=== PATIENT | male | born 1975 | race Two or more races ===

== ENCOUNTER 2017-06-25 11:12 | Day surgery (SDC) | payer BC ==
[2017-06-25] VITALS (13 sets, daily range): BP systolic 115–132; BP diastolic 66–83; PULSE 62–76; RESP 14–20; Ht 180.3 cm; Wt 97.0 kg
[~2017-06-25] VITALS: Ht 180.3 cm; Wt 97.0 kg
[~2017-06-25 11:12] MED LIST: CEFAZOLIN 2 GM/50 ML (PMX) 50 ML IVPB ONE; SOD CHLORIDE 0.9% 1,000 ML IV SCH
[2017-06-25] MEDS ORDERED: ROCURONIUM 50 MG INJ ONE (13:40)
[2017-06-25] MEDS ORDERED: ONDANSETRON 4 MG INJ ONE (13:40)
[2017-06-25] MEDS ORDERED: GLYCOPYRROLATE 0.4 MG INJ ONE (13:40)
[2017-06-25] MEDS ORDERED: NEOSTIGMINE 3 MG/3 ML SYRINGE ONE (13:40)
[2017-06-25] MEDS ORDERED: MIDAZOLAM 1 MG/ML 2 ML INJ ONE (13:40)
[2017-06-25] MEDS ORDERED: PROPOFOL 20 ML ONE (13:40)
[2017-06-25] MEDS ORDERED: METOCLOPRAMIDE 10 MG INJ ONE (13:41)
[2017-06-25] MEDS ORDERED: KETOROLAC 30 MG INJ ONE (13:41)
[2017-06-25] MEDS ORDERED: ROPIVACAINE 0.5 % 30 ML VIAL ONE (13:41)
[2017-06-25] MEDS ORDERED: BUPIVACAINE 0.25% (MPF) 30 ML INJ ONE (13:42)
[2017-06-25] MEDS ORDERED: POLYMYXIN/BACITRACIN 1L IRRIG ONE (13:42)
[2017-06-25] MEDS ORDERED: FENTAnyl 50 MCG/ML VIAL ONE (13:52)
[2017-06-25] MEDS ORDERED: CEFAZOLIN 1 GM INJ ONE (14:08)
--- NOTE | 2017-06-25 14:53 | OPR ---
Date/Time of Note Date/Time of Note DATE: 06/25/17 TIME: 14:47 Operative Report Procedure Date: Jun 25, 2017 Preoperative Diagnosis incarcerated ventral hernia Postoperative Diagnosis same Operation/Procedure Performed 1. laparoscopic incarcerated ventral hernia repair cpt code 61286 2. intraabdominal implantation of mesh ventralight ST 10x15 cm cpt code 66280 3. therapeutic injection of subcutaneous local anesthesia cpt code 18231 Surgeon see signature line [employer] Specialist harpreet ramesh Anesthesia Type: general Estimated Blood Loss: 10 - 50 ml's Transfusion none Specimen none Grafts/Implants none Complications none Pt Condition Post Procedure: stable Indications This is a 42-year-old male with an incarcerated ventral hernia. He requests surgical repair. Risks alternatives benefits and percent were discussed the patient. Patient expressed understanding consents to the operation. Procedure Description Patient taken to the OR and prepped and draped in usual sterile fashion. Surgical timeout was performed. IV antibiotics given. Left upper quadrant 5 mm transverse incision is made with a 15 blade. Using a 5 mm optical trocar optical entry is performed. Pneumoperitoneum is established. Left flank 12 mm optical trocar was placed under direct visualization. Left lower quadrant 5 mm optical trocar was placed under direct visualization. Upon initial inspection there is incarcerated hernia contents this is reduced using laparoscopic techniques lap scopic harmonic. The contents are reduced and resected and removed through the left flank port. The hernia defect is identified and closed with a #1 Prolene in interrupted fashion with using Endo Close and laparoscopic techniques. Underlay mesh with [address] mesh is secured in place with secure strap. There is good hemostasis. Ports removed under direct visualization. Skin is closed using interrupted and running 4-0 Monocryl. Therapeutic contains local anesthesia was injected throughout all incision sites. Dressings were applied. Vira ODOM Jun 25, 2017 14:53
[2017-06-25] MEDS ORDERED: HYDROCODONE/APAP (5/325) TAB PO ONE (15:00)
[2017-06-25] MEDS ORDERED: ONDANSETRON 4 MG INJ IV PRN (15:30)
[2017-06-25] MEDS ORDERED: HYDROmorphONE (0.2 MG/ML) 10ML SYG IV PRN ×3 (15:30)
[2017-06-25] MEDS ORDERED: OXYCODONE/ACETAMINOPHEN (5/325) TAB PO PRN ×2 (15:30)
== END 2017-06-25 16:20 | disposition home or self-care (01) ==
LOC: SDS 11:12
PROVIDERS: ATTEND Surgery
DX: K43.6 Other and unspecified ventral hernia with obstruction, without gangrene (principal)
CPT/HCPCS: 49653; C1781; J0690; J1885; J2250; J2405; J2710; J2765; J2795; J3010; Z7512; Z7610